=== PATIENT | male | born 1980 | race Caucasian/White ===

== ENCOUNTER 2019-03-17 06:54 | Emergency (ER) | payer BC ==
[~2019-03-17] VITALS: Ht 175.3 cm; Wt 83.9 kg
[2019-03-17 06:58] VITALS: BP_SYST 116
--- NOTE | 2019-03-17 07:00 | NUR ---
Placed in room 6 . Placed on cafeteria monitor, blood pressure machine and pulse oximeter. To gown for exam. Side rails up. Report given to MILAGROS CRUZ.
[2019-03-17] MEDS ORDERED: IPRATROPIUM/ALBUTEROL SULFATE 3 ML AMPUL.NEB (DUONEB) INH ONE (07:15)
--- NOTE | 2019-03-17 07:20 | NUR ---
PT complained of SOB x 2 days. Per PT he has had a fever for the previous 2 days and has had chills. Check temp. pt at 98.4. Lung bobby clear. PT is not presenting any signs of acute distress.
--- NOTE | 2019-03-17 07:21 | NUR ---
ER at bedside examining patient.
--- NOTE | 2019-03-17 07:30 | NUR ---
RT at bedside providing breathing treatment to patient.
--- NOTE | 2019-03-17 07:37 | NUR ---
Rad staff at bedside to complete chest xray.
[2019-03-17 08:00] LABS: BASOPHILS # (AUTO) 0.1 K/uL (0.0-0.2); BASOPHILS % (AUTO) 0.6 % (0.0-2.0); EOSINOPHILS # (AUTO) 0.1 K/uL (0.0-0.4); EOSINOPHILS % (AUTO) 1.3 % (0.0-4.0); HEMATOCRIT 41.8 % (36-54); HEMOGLOBIN 14.2 g/dL (14.0-18.0); LYMPHOCYTES # (AUTO) 1.9 K/uL (1.0-5.5); LYMPHOCYTES % (AUTO) 19.9 % (20.5-51.5); MEAN CORPUSCULAR HEMOGLOBIN 30 pg (27-31); MEAN CORPUSCULAR HGB CONC 34 % (32-36); MEAN CORPUSCULAR VOLUME 87 fL (79.0-98.0); MONOCYTES # (AUTO) 0.8 K/uL (0.0-1.0); NEUTROPHILS # (AUTO) 6.7 K/uL (1.8-7.7); NEUTROPHILS % (AUTO) 70.2 % (40.0-70.0); PLATELET COUNT (AUTO) 168 K/uL (130-430); RED BLOOD CELL COUNT(AUTO) 4.79 MIL/uL (4.2-6.2); RED CELL DISTRIBUTION WIDTH 13.5 % (9.0-15.0); WHITE BLOOD COUNT (AUTO) 9.6 K/uL (4.8-10.8)
[2019-03-17 08:12] LABS: CALCIUM 8.7 mg/dL (8.4-11.0); CREATININE 1.2 mg/dL (0.55-1.30); POTASSIUM 3.4 mmol/L (3.5-5.1)
[2019-03-17] MEDS ORDERED: NACL 0.9% 1,000 ML IV ONE (08:15)
[2019-03-17] MEDS ORDERED: cefTRIAXone 1 GM in D5W 50 ML IV ONE (08:15)
[2019-03-17 08:17] LABS: ALBUMIN 3.1 g/dL (3.4-4.8); TOTAL BILIRUBIN 0.7 mg/dL (0.0-1.0)
--- NOTE | 2019-03-17 08:23 | NUR ---
# 20 gauge angiocath placed to L AC. Use of asceptic technique. Opsite placed over site. Blood return noted. Blood for lab drawn from site. Flushed with 10 cc of normal saline. No evidence of infiltration noted. Patient tolerated well.
--- NOTE | 2019-03-17 08:30 | NUR ---
Patient resting quietly. No acute distress noted. Vital signs within normal range.
[2019-03-17] MEDS ORDERED: cefTRIAXone 1 GM VIAL ONE (08:37)
[2019-03-17 09:17] VITALS: BP_SYST 120
--- NOTE | 2019-03-17 09:18 | NUR ---
All IVF and IVPB competed infusion at 0918. Addendum: 03/26/19 at 1508 by SDEDSTC NS and Rocephin started infusing @0845 by RN
--- NOTE | 2019-03-17 09:18 | NUR ---
Patient given written and verbal discharge instructions and verbalizes understanding. ER MD discussed with patient the results and treatment provided. Patient in stable condition. ID arm band removed. IV catheter removed intact and dressing applied, no active bleeding. Rx of Amoxicillen given. Patient educated on pain management and to follow up with PMD. Pain Scale 0/10. Opportunity for questions provided and answered. Medication side effect fact sheet provided.
--- NOTE | 2019-03-17 10:00 | NUR ---
Esmer robison in EDM - 03/21/19 at 1025 by SDEDSTC IVPB rocephin completed infusion @ 1000 on 03/17/19
== END 2019-03-17 09:18 | disposition home or self-care (01) ==
LOC: SED 06:54
DX: J18.9 Pneumonia, unspecified organism (principal)
CPT/HCPCS: 36415; 71045; 80053; 83605; 85025; 86710; 87040; 94640; 96365; 99284; J0696; J7030; J7620

== ENCOUNTER 2024-03-07 16:01 | Emergency (ER) | payer BC ==
[~2024-03-07] VITALS: Ht 180.3 cm; Wt 81.6 kg
[2024-03-07 16:15] VITALS: BP_SYST 127; PULSE 64; RESP 19; TEMP 97.9; O2SAT 97
[2024-03-07 17:13] LABS: BASOPHILS # (AUTO) 0.1 K/uL (0.0-0.2); BASOPHILS % (AUTO) 0.7 % (0.0-2.0); EOSINOPHILS # (AUTO) 0.3 K/uL (0.0-0.4); EOSINOPHILS % (AUTO) 3.2 % (0.0-4.0); HEMATOCRIT 50.4 % (36-54); HEMOGLOBIN 17.4 g/dL (14.0-18.0); LYMPHOCYTES # (AUTO) 2.6 K/uL (1.0-5.5); LYMPHOCYTES % (AUTO) 32.3 % (20.5-51.5); MEAN CORPUSCULAR HEMOGLOBIN 30 pg (27-31); MEAN CORPUSCULAR HGB CONC 34 % (32-36); MEAN CORPUSCULAR VOLUME 86 fL (79.0-98.0); MONOCYTES # (AUTO) 0.7 K/uL (0.0-1.0); MONOCYTES % (AUTO) 8.7 % (1.7-9.3); NEUTROPHILS # (AUTO) 4.4 K/uL (1.8-7.7); NEUTROPHILS % (AUTO) 55.1 % (40.0-70.0); PLATELET COUNT (AUTO) 197 K/uL (130-430); RED BLOOD CELL COUNT(AUTO) 5.88 MIL/uL (4.2-6.2); RED CELL DISTRIBUTION WIDTH 13.9 % (9.0-15.0); WHITE BLOOD COUNT (AUTO) 8.1 K/uL (4.8-10.8)
[2024-03-07] MEDS ORDERED: HYDR30CR79 TP (17:38)
[2024-03-07 17:56] VITALS: BP_SYST 127; PULSE 64; RESP 19; TEMP 97.9; O2SAT 97
== END 2024-03-07 17:55 | disposition home or self-care (01) ==
LOC: SED 16:01
DX: K62.5 Hemorrhage of anus and rectum (principal); K64.9 Unspecified hemorrhoids
CPT/HCPCS: 36415; 85025; 99283